=== PATIENT | female | born 1985 | race Caucasian/White ===

== ENCOUNTER 2021-08-04 19:57 | Inpatient (IN) | payer BC ==
[2021-08-04] MEDS ORDERED: Ondansetron 4 MG/2 ML SDV IVPUSH PRN (20:31)
[2021-08-04] MEDS ORDERED: Lidocaine 1% 50 ML MDV INJECT PRN (20:31)
[2021-08-04] MEDS ORDERED: Carboprost Tromethamine 250 MCG/1 ML Amp IM PRN (20:31)
[2021-08-04] MEDS ORDERED: Methylergonovine 0.2 MG/1 ML Amp IM PRN (20:31)
[2021-08-04] MEDS ORDERED: Water For Irrigation,Sterile 1,000 ML Container IRR PRN (20:31)
[2021-08-04] MEDS ORDERED: Sodium Chloride 0.9% 2.5 ML Syringe FLUSH PRN (20:31)
[2021-08-04] MEDS ORDERED: Sodium Chloride 0.9% 10 ML Syringe FLUSH PRN (20:31)
[2021-08-04] MEDS ORDERED: Misoprostol 200 MCG Tab PO PRN (20:31)
[2021-08-04] MEDS ORDERED: Terbutaline 1 MG/ML SDV SUBCUT PRN (20:31)
[2021-08-04] MEDS ORDERED: Sodium Chloride 0.9% 20 ML SDV IV PRN (20:31)
[2021-08-04] MEDS ORDERED: Tranexamic Acid 1,000 MG in Sodium Chloride 0.9% 100 ML IV PRN (20:31)
[2021-08-04] MEDS ORDERED: Butorphanol 1 MG/ML SDV IVPUSH PRN (20:31)
[2021-08-04] MEDS ORDERED: Ampicillin 2 GM in Sodium Chloride 0.9% 100 ML IV ONE (20:31)
[2021-08-04] MEDS ORDERED: Misoprostol 25 MCG (1/4 of 100 MCG) Tab VAG PRN (20:31)
[2021-08-04] MEDS ORDERED: Oxytocin/0.9 % Sodium Chloride 30 UNIT/500 ML BAG IV SCH ×2 (20:45)
[2021-08-04] MEDS: Lactated Ringers 1,000 ML IV SCH (21:12)
[2021-08-04] MEDS: Misoprostol 25 MCG (1/4 of 100 MCG) Tab VAG PRN (21:30)
[2021-08-05] MEDS: Ampicillin 1 GM in Sodium Chloride 0.9% 50 ML IV SCH ×5 (01:38→18:15)
[2021-08-05] MEDS: Lactated Ringers 1,000 ML IV SCH ×4 (05:51→23:00)
[2021-08-05] MEDS: Misoprostol 25 MCG (1/4 of 100 MCG) Tab VAG PRN (06:05)
[2021-08-05] MEDS ORDERED: ePHEDrine 50 MG/ML SDV IVPUSH PRN ×3 (08:35→20:56)
[2021-08-05] MEDS ORDERED: Ropivacaine 200 MG in Premix Bag 1 BAG EPIDUR SCH (08:45)
[2021-08-05] MEDS ORDERED: Dexamethasone 4 MG/ML 5 ML MDV ONE (19:17)
[2021-08-05] MEDS ORDERED: Morphine PF 10 MG/10 ML SDV ONE (19:17)
[2021-08-05] MEDS ORDERED: Oxytocin 10 Units/1 ML SDV ONE ×3 (19:17→20:29)
[2021-08-05] MEDS ORDERED: Metoclopramide 10 MG/2 ML SDV ONE (19:17)
[2021-08-05] MEDS ORDERED: Bupivacaine 0.5% 10 ML SDV ONE (19:17)
[2021-08-05] MEDS ORDERED: ceFAZolin 1 GM Vial ONE (19:17)
[2021-08-05] MEDS ORDERED: Ondansetron 4 MG/2 ML SDV ONE ×2 (19:17→19:20)
[2021-08-05] MEDS ORDERED: Phenylephrine 1% 10 MG/ML SDV ONE (19:18)
[2021-08-05] MEDS ORDERED: Octyl 2-Cyanoacrylate 1 Tube ONE (19:25)
[2021-08-05] MEDS ORDERED: Ropivacaine 0.5% 5 MG/ML 30 ML SDV ONE (19:33)
[2021-08-05] MEDS ORDERED: Water For Injection, Sterile 20 ML ONE (20:04)
[2021-08-05] MEDS ORDERED: Midazolam 1 MG/ML 2 ML SDV ONE (20:16)
[2021-08-05] MEDS ORDERED: Tranexamic Acid 1,000 MG in Sodium Chloride 0.9% 100 ML IV PRN (20:45)
[2021-08-05] MEDS ORDERED: Ondansetron 4 MG/2 ML SDV IVPUSH PRN ×3 (20:45→20:56)
[2021-08-05] MEDS ORDERED: Acetaminophen/oxyCODONE 325-5 MG Tab PO PRN ×3 (20:45→20:56)
[2021-08-05] MEDS ORDERED: Oxytocin 10 Units/1 ML SDV IM PRN (20:45)
[2021-08-05] MEDS ORDERED: Lanolin 100% Cream 7 GM Tube TOP PRN (20:45)
[2021-08-05] MEDS ORDERED: Misoprostol 200 MCG Tab RECTAL PRN (20:45)
[2021-08-05] MEDS ORDERED: Ibuprofen 800 MG Tab PO PRN (20:45)
[2021-08-05] MEDS ORDERED: diphenhydrAMINE 50 MG/ML SDV IVPUSH PRN ×2 (20:45→20:56)
[2021-08-05] MEDS ORDERED: Bisacodyl 10 MG Supp RECTAL PRN (20:45)
[2021-08-05] MEDS ORDERED: fentaNYL 100 MCG/2 ML SDV IVPUSH PRN ×2 (20:56)
[2021-08-05] MEDS ORDERED: HYDROmorphone 1 MG/ML Syringe IVPUSH PRN (20:56)
[2021-08-05] MEDS ORDERED: Morphine 2 MG/ML SYRINGE IVPUSH PRN (20:56)
[2021-08-05] MEDS ORDERED: Albuterol 0.083% 2.5 MG/3 ML Neb Soln NEB PRN (20:56)
[2021-08-05] MEDS ORDERED: Naloxone 0.4 MG/ML SDV IVPUSH PRN (20:56)
[2021-08-05] MEDS ORDERED: Metoclopramide 10 MG/2 ML SDV IVPUSH PRN (20:56)
[2021-08-05] MEDS ORDERED: Acetaminophen 1,000 MG in Premix Bag 1 BAG IV PRN (21:00)
[2021-08-06] MEDS: Lactated Ringers 1,000 ML IV SCH (07:31)
[2021-08-06] MEDS: Docusate Sodium 100 MG Cap PO SCH ×3 (07:48→21:22)
[2021-08-06] MEDS: Prenatal Multivitamin with Calcium/Folic Acid/Iron Tab PO SCH (09:08)
[2021-08-06] MEDS: Ketorolac 30 MG/ML SDV IVPUSH SCH (21:23)
[2021-08-07] MEDS: Ketorolac 30 MG/ML SDV IVPUSH SCH ×2 (03:27→09:23)
[2021-08-07] MEDS: Prenatal Multivitamin with Calcium/Folic Acid/Iron Tab PO SCH (09:24)
[2021-08-07] MEDS: Docusate Sodium 100 MG Cap PO SCH (09:24)
== END 2021-08-07 13:44 | disposition home or self-care (01) | DRG 540 ==
LOC: MW.OBCHECK 19:57 → MW.OB 20:31 → OBSVTOIN 20:31 → MW.OB 08-06 02:42
PROVIDERS: ADMIT Obstetrics & Gynecology; ATTEND Obstetrics & Gynecology
PROC: 10D00Z1 Extraction of Products of Conception, Low, Open Approach (ICD-10-PCS; principal; 2021-08-05)
DX: O48.0 Post-term pregnancy (principal); O99.214 Obesity complicating childbirth; O62.1 Secondary uterine inertia; O77.0 Labor and delivery complicated by meconium in amniotic fluid; O76 Abnormality in fetal heart rate and rhythm complicating labor and delivery; Z90.49 Acquired absence of other specified parts of digestive tract; Z3A.40 40 weeks gestation of pregnancy; Z37.0 Single live birth; Z86.16 Personal history of COVID-19
CPT/HCPCS: 36415; 51701; 82803; 85014; 85018; 85027; 86592; 86850; 86900; 86901; A9270-GY; J0131; J0290; J0595; J0690; J1100; J1790; J1885; J2250; J2274; J2370; J2405; J2590; J2765; J2795; J3105; J3490; J7120

== ENCOUNTER 2024-01-20 05:01 | Inpatient (IN) | payer BC ==
[2024-01-20] MEDS ORDERED: Sodium Chloride 0.9% 2.5 ML Syringe FLUSH PRN ×2 (05:03→09:00)
[2024-01-20] MEDS ORDERED: Sodium Chloride 0.9% 10 ML Syringe FLUSH PRN ×2 (05:03→09:00)
[2024-01-20] MEDS ORDERED: Sodium Chloride 0.9% 20 ML SDV IV PRN (05:03)
[2024-01-20] MEDS ORDERED: Oxytocin/0.9 % Sodium Chloride 30 UNIT/500 ML BAG IV SCH ×2 (05:15→09:00)
[2024-01-20] MEDS: Lactated Ringers 1,000 ML IV SCH (05:30)
[2024-01-20 06:38] LABS: HEMATOCRIT 38.4 % (37.0-47.0); HEMOGLOBIN 13.6 g/dL (12.0-16.0); MEAN CORPUSCULAR HEMOGLOBIN 31.3 pg (28.0-32.0); MEAN CORPUSCULAR HGB CONC 35.4 g/dL (32.0-36.0); MEAN CORPUSCULAR VOLUME 88.3 fL (83.0-99.0); MEAN PLATELET VOLUME 10.3 fL (9.4-12.3); PLATELET COUNT,PLT 183 K/uL (150-400); RED BLOOD CELL COUNT 4.35 M/uL (4.10-5.30); WHITE BLOOD CELL COUNT,WBC 7.19 K/uL (3.9-11.3)
[2024-01-20] MEDS ORDERED: dexmedeTOMIDine HCl 200 MCG/2 ML SDV ONE (06:59)
[2024-01-20] MEDS ORDERED: Ropivacaine 0.5% 5 MG/ML 30 ML SDV ONE (06:59)
[2024-01-20] MEDS ORDERED: Phenylephrine 1% 10 MG/ML SDV ONE (06:59)
[2024-01-20] MEDS ORDERED: Tranexamic Acid 1,000 MG/10 ML Vial ONE (06:59)
[2024-01-20] MEDS ORDERED: ePHEDrine 50 MG/ML SDV ONE (06:59)
[2024-01-20] MEDS ORDERED: Dexamethasone 4 MG/ML 5 ML MDV ONE (06:59)
[2024-01-20] MEDS ORDERED: Oxytocin 10 Units/1 ML SDV ONE ×4 (06:59→08:19)
[2024-01-20] MEDS ORDERED: Ondansetron 4 MG/2 ML SDV ONE (06:59)
[2024-01-20] MEDS ORDERED: ceFAZolin 1 GM Vial ONE (07:00)
[2024-01-20] MEDS ORDERED: Water For Injection, Sterile 20 ML ONE (07:00)
[2024-01-20] MEDS ORDERED: ceFAZolin 2 GM Vial ONE (07:00)
[2024-01-20] MEDS ORDERED: Calcium Chloride 10% 1 GM/10 ML Syringe ONE (07:00)
[2024-01-20] MEDS ORDERED: fentaNYL 100 MCG/2 ML SDV ONE (07:02)
[2024-01-20] MEDS ORDERED: Morphine PF 10 MG/10 ML SDV ONE (07:02)
[2024-01-20] MEDS ORDERED: Phenylephrine HCl In 0.9% NaCl 1 MG/10 ML Syringe IVPUSH PRN (08:20)
[2024-01-20] MEDS ORDERED: fentaNYL 50 MCG/ML SDV IVPUSH PRN (08:20)
[2024-01-20] MEDS ORDERED: Ondansetron 4 MG/2 ML SDV IVPUSH PRN (08:20)
[2024-01-20] MEDS ORDERED: droPERidol 5 MG/2 ML SDV IVPUSH PRN (08:20)
[2024-01-20] MEDS ORDERED: Naloxone 0.4 MG/ML SDV IVPUSH PRN (08:20)
[2024-01-20] MEDS ORDERED: Morphine 2 MG/ML SYRINGE IVPUSH PRN (08:20)
[2024-01-20] MEDS ORDERED: Albuterol 0.083% 2.5 MG/3 ML Neb Soln NEB PRN (08:20)
[2024-01-20] MEDS ORDERED: HYDROmorphone 1 MG/ML Syringe IVPUSH PRN (08:20)
[2024-01-20] MEDS ORDERED: Metoclopramide 10 MG/2 ML SDV IVPUSH PRN (08:20)
[2024-01-20] MEDS: Citric Acid/Sodium Citrate Solution 30 ML Cup PO ONE (08:45)
[2024-01-20] MEDS ORDERED: Lanolin 100% Cream 7 GM Tube TOP PRN (09:00)
[2024-01-20] MEDS ORDERED: Carboprost Tromethamine 250 MCG/1 mL Vial IM PRN (09:00)
[2024-01-20] MEDS ORDERED: Tranexamic Acid 1,000 MG in Sodium Chloride 0.9% 100 ML IV PRN (09:00)
[2024-01-20] MEDS ORDERED: Misoprostol 200 MCG Tab RECTAL PRN (09:00)
[2024-01-20] MEDS ORDERED: oxyCODONE 5 MG Tab PO PRN (09:00)
[2024-01-20 09:08] LABS: PH,UMBILICAL ARTERIAL 7.165 (7.18-7.38); PH,UMBILICAL VENOUS 7.267 (7.25-7.45)
[2024-01-20] MEDS: Docusate Sodium 100 MG Cap PO SCH (09:44)
[2024-01-20] MEDS: Ketorolac 30 MG/ML SDV IVPUSH SCH (09:55)
[2024-01-20] MEDS: ePHEDrine 50 MG/ML SDV IM ONE (10:01)
[2024-01-20] MEDS: Methylergonovine 0.2 MG/1 ML Amp IM ONE (10:10)
[2024-01-20] MEDS: Acetaminophen 1,000 MG in Premix Bag 1 BAG IV SCH (10:37)
[2024-01-20] MEDS: Ondansetron 4 MG/2 ML SDV IVPUSH PRN (12:43)
[2024-01-21 06:17] LABS: BASOPHILS ABSOLUTE AUTO 0.02 K/uL (0.00-0.20); BASOPHILS PERCENT AUTO 0.2 % (0.0-1.0); EOSINOPHILS ABSOLUTE AUTO 0.05 K/uL (0.00-0.45); EOSINOPHILS PERCENT AUTO 0.6 % (0.0-6.0); HEMATOCRIT 35.2 % (37.0-47.0); HEMOGLOBIN 11.9 g/dL (12.0-16.0); IMMATURE GRAN PERCENT AUTO 1.1 % (0.0-0.4); LYMPHOCYTES ABSOLUTE AUTO 2.01 K/uL (1.00-4.80); LYMPHOCYTES PERCENT AUTO 22.1 % (24.0-44.0); MEAN CORPUSCULAR HGB CONC 33.8 g/dL (32.0-36.0); MEAN CORPUSCULAR VOLUME 91.7 fL (83.0-99.0); MONOCYTES ABSOLUTE AUTO 0.77 K/uL (0.00-0.80); MONOCYTES PERCENT AUTO 8.5 % (0.0-8.0); NEUTROPHILS ABSOLUTE AUTO 6.14 K/uL (1.80-7.70); NEUTROPHILS PERCENT AUTO 67.5 % (41.0-71.0); PLATELET COUNT,PLT 184 K/uL (150-400); RED BLOOD CELL COUNT 3.84 M/uL (4.10-5.30); WHITE BLOOD CELL COUNT,WBC 9.09 K/uL (3.9-11.3)
[2024-01-21] MEDS ORDERED: oxyCODONE 5 MG Tab PO PRN (09:00)
[2024-01-21] MEDS: Ibuprofen 800 MG Tab PO PRN (09:55)
[2024-01-21] MEDS: Acetaminophen 500 MG Tab PO PRN (14:15)
== END 2024-01-22 12:35 | disposition home or self-care (01) | DRG 540 ==
LOC: MW.OB 05:01
PROVIDERS: ADMIT Obstetrics & Gynecology; ATTEND Obstetrics & Gynecology
PROC: 10D00Z1 Extraction of Products of Conception, Low, Open Approach (ICD-10-PCS; principal; 2024-01-20 08:00)
DX: O34.211 Maternal care for low transverse scar from previous cesarean delivery (principal); O99.214 Obesity complicating childbirth; Z37.0 Single live birth; Z3A.38 38 weeks gestation of pregnancy; O99.344 Other mental disorders complicating childbirth; F41.9 Anxiety disorder, unspecified; O36.63X0 Maternal care for excessive fetal growth, third trimester, not applicable or unspecified
CPT/HCPCS: 36415; 59025; 64999; 82803; 85025; 85027; 86592; 86850; 86900; 86901; A9270-GY; J0131; J0690; J1100; J1885; J2274; J2371; J2405; J2590; J2795; J3010; J3490; J7120